=== PATIENT | female | born 1945 | race African-American/Black ===

== ENCOUNTER 2018-06-10 14:56 | Emergency (ER) | payer MEDICARE | END 2018-06-10 15:06 | LOC: ERS 14:56 | DX: Z53.21 Procedure and treatment not carried out due to patient leaving prior to being seen by health care provider (principal) ==

== ENCOUNTER 2025-04-20 10:55 | Outpatient (CLI) | payer OTHER, MEDICAID | END 2025-04-20 10:56 | disposition home or self-care (01) | LOC: ULT 10:55 | PROVIDERS: ATTEND Internal Medicine Nephrology | DX: N18.4 Chronic kidney disease, stage 4 (severe) (principal); N28.1 Cyst of kidney, acquired | CPT/HCPCS: 76770 ==